=== PATIENT | male | born 2000 | race American Indian/Alaskan Native ===

== ENCOUNTER 2020-10-01 21:49 | Emergency (ER) | payer OTHER ==
[2020-10-01 22:16] VITALS: BP 139/85
== END 2020-10-02 01:10 | disposition home or self-care (01) ==
LOC: ED 21:49
DX: J01.10 Acute frontal sinusitis, unspecified (principal); L98.8 Other specified disorders of the skin and subcutaneous tissue
CPT/HCPCS: 99281